=== PATIENT | female | born 1995 | race Caucasian/White ===

== ENCOUNTER → 2020-02-23 15:21 | Outpatient (CLI) | payer BC, SELFPAY ==
--- NOTE | ~2020-02-23 | US_ITS ---
EXAMINATION: US pelvic complete DATE: 02/23/2020 15:40 INDICATION: Menorrhagia. TECHNIQUE: Multiple transabdominal and transvaginal sonographic images of the pelvis were obtained. COMPARISON: None. FINDINGS: TRANSABDOMINAL ULTRASOUND: The uterus measures 8.6 x 3.9 x 5.9 cm. There is no free fluid in the pelvis. TRANSVAGINAL ULTRASOUND: The endometrial complex measures 1.4 cm in thickness. The right ovary measures 3.8 x 2.7 x 3.2 cm. Th e left ovary measures 2.2 x 1.6 x 2.6 cm. There is normal vascular flow in the ovaries. IMPRESSION: 1. Normal pelvis. Reviewed, dictated and finalized at location A. IMPRESSION: 1. Normal pelvis.
== END ==
PROVIDERS: PCP Physician Assistant; Visit Provider Physician Assistant
DX: N92.0 Excessive and frequent menstruation with regular cycle (principal)
CPT/HCPCS: 76856

== ENCOUNTER 2022-11-17 13:37 | Outpatient (CLI) | payer BC, SELFPAY ==
--- NOTE | ~2022-11-17 | US_ITS ---
US breast RT limited DATE: 11/17/2022 13:56 INDICATION: Patient complains of a palpable lump on the right at 11:00 for 6 years TECHNIQUE: Real-time imaging targeted area of clinical complaint at 11:00, axillary area COMPARISON: None FINDINGS: No suspicious mass or shadowing, cyst or other significant sonographic finding is noted in the area of clinical complaint. IMPRESSION: Negative Reviewed, dictated and finalized at [facility]. Reviewed, dictated and finalized at location A. IMPRESSION: Negative
== END 2022-11-17 13:38 ==
LOC: MICIMG 13:40
PROVIDERS: PCP Family Medicine; Visit Provider Physician Assistant
DX: N63.11 Unspecified lump in the right breast, upper outer quadrant (principal)
CPT/HCPCS: 76642